=== PATIENT | female | born 1985 | race Caucasian/White ===

== ENCOUNTER 2018-09-02 10:06 | Emergency (ER) | payer MEDICAID ==
[~2018-09-02] VITALS: Ht 170.2 cm; Wt 55.0 kg
[2018-09-02] MEDS ORDERED: IBUPROFEN 600MG TABLET PO ONE (13:45)
[2018-09-02 14:11] VITALS: BP 118/74
== END 2018-09-02 14:13 | disposition home or self-care (01) ==
LOC: ER 10:06
DX: J06.9 Acute upper respiratory infection, unspecified (principal); F17.200 Nicotine dependence, unspecified, uncomplicated; F31.9 Bipolar disorder, unspecified
CPT/HCPCS: 99282